=== PATIENT | male | born 2005 | race Two or more races ===

== ENCOUNTER 2023-11-15 11:56 | Emergency (ER) | payer OTHER ==
[~2023-11-15] VITALS: Ht 182.9 cm; Wt 118.2 kg
[~2023-11-15 11:56] MED LIST: HYDR-4723 PO
[2023-11-15 12:39] VITALS: BP 116/72; PULSE 77; RESP 18; TEMP 98.7
== END 2023-11-15 15:17 ==
LOC: EMS 12:32
DX: G89.18 Other acute postprocedural pain (principal); Z98.890 Other specified postprocedural states; Z91.040 Latex allergy status
CPT/HCPCS: 99284; 73090-TC; 73130-TC; Z7502